=== PATIENT | male | born 1985 | race Asian ===

== ENCOUNTER 2022-10-30 12:13 | Emergency (ER) | payer OTHER ==
[~2022-10-30] VITALS: Ht 167.6 cm; Wt 121.6 kg
--- NOTE | 2022-10-30 12:15 | NUR ---
Patient to ER bed 06 to gown for evaluation. Side rails up.
--- NOTE | 2022-10-30 12:17 | NUR ---
Pt brought by self, A&Ox4, pt presents to ER with abscess on R buttocks x 5 days, skin pink and warm, cap refill <3, VSS, respirations even and unlabored
--- NOTE | 2022-10-30 12:25 | NUR ---
Dr Dickinson evaluating patient at bedside
[2022-10-30 12:30] VITALS: BP_SYST 156
[2022-10-30] MEDS ORDERED: DIPHTH,PERTUSS(ACELL),TET VAC 0.5 ML VIAL (Tdap) I.M. ONE (12:45)
[2022-10-30] MEDS ORDERED: LIDOCAINE/EPI 1% 1:100000 20 ML VIAL INJ ONE (12:45)
[2022-10-30 12:53] LABS: BASOPHILS % (AUTO) 0.2 % (0.0-2.0); EOSINOPHILS # (AUTO) 0.1 K/uL (0.0-0.4); EOSINOPHILS % (AUTO) 0.8 % (0.0-4.0); HEMATOCRIT 48.2 % (36-54); LYMPHOCYTES # (AUTO) 1.9 K/uL (1.0-5.5); LYMPHOCYTES % (AUTO) 15.3 % (20.5-51.5); MEAN CORPUSCULAR HEMOGLOBIN 29 pg (27-31); MEAN CORPUSCULAR HGB CONC 33 % (32-36); MEAN CORPUSCULAR VOLUME 87 fL (79.0-98.0); MONOCYTES # (AUTO) 0.8 K/uL (0.0-1.0); NEUTROPHILS # (AUTO) 9.3 K/uL (1.8-7.7); NEUTROPHILS % (AUTO) 76.7 % (40.0-70.0); PLATELET COUNT (AUTO) 299 K/uL (130-430); RED BLOOD CELL COUNT(AUTO) 5.52 MIL/uL (4.2-6.2); RED CELL DISTRIBUTION WIDTH 13.4 % (9.0-15.0); WHITE BLOOD COUNT (AUTO) 12.1 K/uL (4.8-10.8)
[2022-10-30 13:08] LABS: CREATININE 1.1 mg/dL (0.55-1.30)
[2022-10-30 13:12] LABS: ALBUMIN 3.8 g/dL (3.4-4.8); C-REACTIVE PROTEIN QUANT 1.4 mg/dL (0-0.5); TOTAL BILIRUBIN 0.4 mg/dL (0.0-1.0)
[2022-10-30] MEDS ORDERED: IBUP-1971 PO (13:21)
[2022-10-30] MEDS ORDERED: CLIN-142 PO (13:22)
[2022-10-30 14:30] VITALS: BP_SYST 156
--- NOTE | 2022-10-30 14:32 | NUR ---
Patient given written and verbal discharge instructions and verbalizes understanding. ER MD discussed with patient the results and treatment provided. Patient in stable condition. ID arm band removed. Rx of CLINDAMYCIN/IBUROFEN given. Patient educated on pain management and to follow up with PMD. Opportunity for questions provided and answered. Medication side effect fact sheet provided.
== END 2022-10-30 14:32 | disposition home or self-care (01) ==
LOC: SED 12:13
DX: L02.31 Cutaneous abscess of buttock (principal); Z79.899 Other long term (current) drug therapy
CPT/HCPCS: 36415; 80053; 83605; 85025; 86140; 90715; 99283

== ENCOUNTER 2022-10-30 18:14 | Emergency (ER) | payer OTHER ==
[~2022-10-30] VITALS: Ht 167.6 cm; Wt 121.6 kg
[~2022-10-30 18:14] MED LIST: CLIN-142 PO; IBUP-1971 PO
[2022-10-30 18:31] VITALS: BP_SYST 142
--- NOTE | 2022-10-30 18:44 | NUR ---
Pt return to ER with c/o bleeding on R buttocks after I&D today, pt afebrile, skin pink and warm, cap refill <3, VSS.
--- NOTE | 2022-10-30 18:45 | NUR ---
Dr Boo evaluating patient in the triage room
[2022-10-30 18:51] VITALS: BP_SYST 142
--- NOTE | 2022-10-30 18:51 | NUR ---
Patient given written and verbal discharge instructions and verbalizes understanding. ER MD discussed with patient the results and treatment provided. Patient in stable condition. ID arm band removed. No Rx given. Patient educated on pain management and to follow up with PMD. Pain Scale 0/10. Opportunity for questions provided and answered. Medication side effect fact sheet provided.
== END 2022-10-30 18:51 | disposition home or self-care (01) ==
LOC: SED 18:14
DX: Z48.00 Encounter for change or removal of nonsurgical wound dressing (principal); L02.31 Cutaneous abscess of buttock; Z79.899 Other long term (current) drug therapy
CPT/HCPCS: 99281

== ENCOUNTER 2022-10-31 04:30 | Emergency (ER) | payer OTHER ==
[~2022-10-31] VITALS: Ht 167.6 cm; Wt 121.6 kg
[2022-10-31 04:44] VITALS: BP_SYST 133
--- NOTE | 2022-10-31 04:53 | NUR ---
Dr. Boo at bedside with patient for MSE. present at bedside.
--- NOTE | 2022-10-31 05:00 | NUR ---
Pt from home with blood draining from wound on the right buttocks that was I&D earlier today. Pt returned to ED because the wound has been draining blood and saturating through the dressing after multiple changes. Pt arrived with dressing saturated. Pt with pain to the area. Pt tachycardic at 120 BPM, states he feel anxious. MD made aware of HR. Safety precautions in place and connected to monitor.
[2022-10-31] MEDS ORDERED: NACL 0.9% 1,000 ML IV ONE (05:30)
--- NOTE | 2022-10-31 05:38 | NUR ---
at bedside for lac repair.
--- NOTE | 2022-10-31 06:00 | NUR ---
# 20 gauge angiocath placed to RAC. Use of asceptic technique. Opsite placed over site. Blood return noted. Blood for lab drawn from site. Flushed with 10 cc of normal saline. No evidence of infiltration noted. Patient tolerated well.
--- NOTE | 2022-10-31 06:05 | NUR ---
Blood collected and sent to lab.
[2022-10-31 06:16] LABS: BASOPHILS % (AUTO) 0.3 % (0.0-2.0); EOSINOPHILS # (AUTO) 0.1 K/uL (0.0-0.4); EOSINOPHILS % (AUTO) 1.1 % (0.0-4.0); HEMATOCRIT 40.7 % (36-54); HEMOGLOBIN 13.4 g/dL (14.0-18.0); LYMPHOCYTES # (AUTO) 1.7 K/uL (1.0-5.5); LYMPHOCYTES % (AUTO) 14.8 % (20.5-51.5); MEAN CORPUSCULAR HEMOGLOBIN 29 pg (27-31); MEAN CORPUSCULAR HGB CONC 33 % (32-36); MEAN CORPUSCULAR VOLUME 87 fL (79.0-98.0); NEUTROPHILS # (AUTO) 8.4 K/uL (1.8-7.7); NEUTROPHILS % (AUTO) 74.8 % (40.0-70.0); PLATELET COUNT (AUTO) 291 K/uL (130-430); RED CELL DISTRIBUTION WIDTH 13.2 % (9.0-15.0); WHITE BLOOD COUNT (AUTO) 11.2 K/uL (4.8-10.8)
--- NOTE | 2022-10-31 06:28 | NUR ---
Pt to CT via [place] accompanied by
[2022-10-31 06:35] LABS: ALBUMIN 3.3 g/dL (3.4-4.8); CALCIUM 8.4 mg/dL (8.4-11.0); CREATININE 1.08 mg/dL (0.55-1.30); TOTAL BILIRUBIN 0.3 mg/dL (0.0-1.0)
--- NOTE | 2022-10-31 06:40 | NUR ---
Pt returned from CT via gurney accompanied by tech. Safety precautions in place and connected to monitor.
--- NOTE | 2022-10-31 08:07 | NUR ---
REPORT GIVEN TO SHILO CHAUDHARI TO ASSUME CARE.
[2022-10-31 08:29] VITALS: BP_SYST 133
--- NOTE | 2022-10-31 08:31 | NUR ---
Patient given written and verbal discharge instructions and verbalizes understanding. ER MD discussed with patient the results and treatment provided. Patient in stable condition. ID arm band removed. IV catheter removed intact and dressing applied, no active bleeding. Rx of given. Patient educated on pain management and to follow up with PMD. Opportunity for questions provided and answered. Medication side effect fact sheet provided.
== END 2022-10-31 08:31 | disposition home or self-care (01) ==
LOC: SED 04:30
DX: Z48.00 Encounter for change or removal of nonsurgical wound dressing (principal); Z79.899 Other long term (current) drug therapy
CPT/HCPCS: 99285; 96360; 72193; 80053; 85025; 86886; 86900; 86901; 36415; 76376; 83605; 12001; Q9967; J7030

== ENCOUNTER 2022-11-01 09:34 | Emergency (ER) | payer OTHER ==
[~2022-11-01] VITALS: Ht 167.6 cm; Wt 121.6 kg
--- NOTE | 2022-11-01 09:34 | NUR ---
BROUGHT BACK TO BED #2 AND TRIAGED. REPORT GIVEN TO FARA
[2022-11-01 09:35] VITALS: BP_SYST 141
--- NOTE | 2022-11-01 10:12 | NUR ---
VSS and patient appears in no acute distress at this time. Accompanied by Significant other. MD made aware of patient ready for MSE
--- NOTE | 2022-11-01 10:41 | NUR ---
patient left ed, accompanied by parent. Patient left with steady gait and parent/patient verbalized understanding of DC instructions
[2022-11-01 10:42] VITALS: BP_SYST 141
== END 2022-11-01 10:41 | disposition home or self-care (01) ==
LOC: SED 09:34
DX: L02.31 Cutaneous abscess of buttock (principal); Z79.899 Other long term (current) drug therapy
CPT/HCPCS: 99282

== ENCOUNTER 2022-11-03 14:24 | Emergency (ER) | payer OTHER ==
[2022-11-03 15:52] VITALS: BP_SYST 156
== END 2022-11-03 15:46 | disposition home or self-care (01) ==
LOC: SED 14:24
DX: L02.31 Cutaneous abscess of buttock (principal); Z48.00 Encounter for change or removal of nonsurgical wound dressing; Z79.899 Other long term (current) drug therapy
CPT/HCPCS: 99282